=== PATIENT | male | born 1950 | race Caucasian/White ===

== ENCOUNTER → 2016-05-12 | Outpatient (CLI) | payer OTHER ==
--- NOTE | 2016-05-12 16:00 | RADRPT ---
PROCEDURE: XR right knee. CLINICAL INDICATION: Knee pain TECHNIQUE: AP weightbearing, PA weightbearing, lateral weightbearing and sunrise views are availab le for review. COMPARISON: None available FINDINGS: There is severe osteoarthrosis involving the medial tibial femoral compartment and mild osteoarthros is involving the lateral tibial femoral compartment and the patellofemoral compartment. This is asso ciated with joint space narrowing, subchondral sclerosis and osteophytosis. There are multiple calci fied loose bodies in the posterior joint. There is a small suprapatellar joint effusion There is otherwise normal mineralization, architecture and alignment. No fractures are identified. No osseous lesions are identified. The soft tissues are unremarkable. IMPRESSION: Severe osteoarthrosis involving the medial tibial femoral compartment and mild osteoarthrosis involv ing the patellofemoral compartment and the lateral tibial femoral compartment. Multiple calcified loose bodies in the posterior joint Small suprapatellar joint effusion RPTAT: [facility] .Fausto Dean MD, MD Date Time Electronically viewed and signed by .Fausto Dean MD, on 05/12/2016 16:00 .B/
== END | disposition home or self-care (01) ==
LOC: HKI 14:14
PROVIDERS: ATTEND Orthopaedic Surgery
DX: M25.561 Pain in right knee (principal); M17.11 Unilateral primary osteoarthritis, right knee; M25.461 Effusion, right knee; I10 Essential (primary) hypertension
CPT/HCPCS: 73564; Z7500; G0463

== ENCOUNTER → 2016-07-05 | Outpatient (CLI) | payer OTHER ==
--- NOTE | 2016-07-05 21:19 | RADRPT ---
PROCEDURE: XR bilateral lower extremities. CLINICAL INDICATION: Leg length discrepancy. TECHNIQUE: AP view of the bilateral femurs was obtained. COMPARISON: No prior studies are available for comparison. FINDINGS: Evaluation of the femoral heads is limited due to overlying artifact from pants and belt. Right femur length from femoral head to medial femoral condyle is 54.6 cm. Left femur length from femoral head to medial femoral condyle is 54.4 cm. There is no evidence of fracture or dislocation. The bony mineralization appears normal. Advanced degenerative changes noted in the bilateral knee joints, incompletely visualized The soft tissues are unremarkable. IMPRESSION: 1. No significant leg length discrepancy involving the femurs. 2. No evidence of fracture or dislocation. RPTAT: II .Felix Vogel MD, MD Date Time Electronically viewed and signed by .Felix Vogel MD, on 07/05/2016 21:19 .M/
== END | disposition home or self-care (01) ==
LOC: HKI 09:28
PROVIDERS: ATTEND Orthopaedic Surgery
DX: M25.561 Pain in right knee (principal); M17.11 Unilateral primary osteoarthritis, right knee
CPT/HCPCS: 77073; 87081; Z7500; G0463

== ENCOUNTER → 2016-11-23 | Outpatient (CLI) | payer MEDICARE, OTHER | END | disposition home or self-care (01) | LOC: HKI 13:30 | PROVIDERS: ATTEND Orthopaedic Surgery Adult Reconstructive Orthopaedic Surgery | DX: M17.11 Unilateral primary osteoarthritis, right knee (principal); I10 Essential (primary) hypertension; J44.9 Chronic obstructive pulmonary disease, unspecified; E78.00 Pure hypercholesterolemia, unspecified; Z86.73 Personal history of transient ischemic attack (TIA), and cerebral infarction without residual deficits | CPT/HCPCS: 20610; G0463 ==

== ENCOUNTER → 2017-03-01 | Outpatient (CLI) | END | disposition home or self-care (01) ==

== ENCOUNTER 2017-07-18 06:21 | Observation (INO) | END 2017-07-19 18:46 ==

== ENCOUNTER 2017-07-19 19:37 | Inpatient (IN) | END 2017-08-01 11:30 | disposition home health service (06) | DRG 560 ==